=== PATIENT | female | born 1960 | race Caucasian/White ===

== ENCOUNTER 2021-04-09 13:45 | Outpatient (CLI) | payer OTHER, SELFPAY ==
--- NOTE | 2021-04-09 13:53 | MM_ITS ---
WS: [id number] BILATERAL SCREENING DIGITAL MAMMOGRAM WITH CAD HISTORY: SCREENING COMPARISON: 09/05/2018, 03/07/2018, 02/17/2018 and 11/04/2016 Bilateral CC and MLO views submitted. Computer aided detection analyzed. Breast composition: The breasts are heterogeneously dense, which may obscure small masses. No suspici ous masses, microcalcifications or architectural distortion. Mild lobulated asymmetries noted in the upper-outer quadrant of the RIGHT breast have been present on prior examinations. MM/[place] [id number] IMPRESSION: BI-RADS: 2-Benign FOLLOW UP: 1 Year Follow-up
== END 2021-04-09 13:46 | disposition home or self-care (01) ==
LOC: RADSHAW 13:51
PROVIDERS: PCP Family Medicine; Visit Provider Family Medicine
DX: Z12.31 Encounter for screening mammogram for malignant neoplasm of breast (principal)
CPT/HCPCS: 77067

== ENCOUNTER → 2021-05-23 13:30 | Outpatient (BNVA) | payer OTHER, SELFPAY | PROVIDERS: PCP Family Medicine; Visit Provider Nurse Practitioner Women's Health | DX: Z01.419 Encounter for gynecological examination (general) (routine) without abnormal findings (principal); N76.2 Acute vulvitis | CPT/HCPCS: 87624 ==

== ENCOUNTER 2022-07-30 10:19 | Outpatient (CLI) | payer OTHER, SELFPAY ==
--- NOTE | 2022-07-30 10:32 | MM_ITS ---
WS: [id number] BILATERAL SCREENING DIGITAL TOMOSYNTHESIS MAMMOGRAM WITH CAD HISTORY: Z12.31 - Encounter for screening mammogram for malignancy.... COMPARISON: 04/09/2021, 11/04/2016 Bilateral CC and MLO views with tomosynthesis and synthetic mammography submitted. Computer aided det ection analyzed. Breast composition: The breasts are heterogeneously dense, which may obscure small masses. No suspici ous masses, microcalcifications or architectural distortion. Long-term stability 8 mm mass upper oute r quadrant RIGHT breast. MM/[place] [id number] IMPRESSION: BI-RADS: 2-Benign FOLLOW UP: 1 Year Follow-up
== END 2022-07-30 10:20 | disposition home or self-care (01) ==
LOC: RAD 10:22
PROVIDERS: PCP Family Medicine; Visit Provider Nurse Practitioner Women's Health
DX: Z12.31 Encounter for screening mammogram for malignant neoplasm of breast (principal)
CPT/HCPCS: 77063; 77067

== ENCOUNTER 2022-07-31 13:35 | Outpatient (CLI) | payer OTHER, SELFPAY ==
--- NOTE | 2022-07-31 14:00 | XR_ITS ---
WS: [id number] SCREENING DEXA SCAN [employer] CLINICAL INFORMATION: Z78.0 - Asymptomatic menopausal state COMPARISON: 2013 FINDINGS: The L1-L4 bone mineral density measures 1.044 g/cm2. This corresponds to a T score score of -1.1 and Z score of -0.6. Left femoral neck bone mineral density measures 0.997 g/cm2. This corresponds to a T score of -0.1 an d Z score of 0.4. Right femoral neck bone mineral density measures 0.973 g/cm2. This corresponds to a T score -0.3of an d Z score of 0.2. Mean femoral neck bone mineral density measures 0.985 g/cm2. This corresponds to a T score of -0.2 an d Z score of 0.3. XR/XR DEXA axial skeleton* [id number] IMPRESSION: Osteopenia lumbar spine. Normal bone mineralization femoral necks. Patient's FRAX calculated 10 year probability for major osteoporotic fracture i s 12.5 % and osteoporotic hip fracture is 1.0%. Bone mineral density in the lumbar spine has decreased -2.8% since 2014. Bone mineral density in the femoral necks increased 7.7% since 2014.
== END 2022-07-31 13:36 | disposition home or self-care (01) ==
LOC: RAD 13:38
PROVIDERS: PCP Family Medicine; Visit Provider Nurse Practitioner Women's Health
DX: Z13.820 Encounter for screening for osteoporosis (principal); Z78.0 Asymptomatic menopausal state; M85.89 Other specified disorders of bone density and structure, multiple sites
CPT/HCPCS: 77080

== ENCOUNTER → 2022-08-06 11:51 | Outpatient (BNVA) | payer OTHER, SELFPAY | PROVIDERS: PCP Family Medicine; Visit Provider Nurse Practitioner Women's Health | DX: N95.0 Postmenopausal bleeding (principal) | CPT/HCPCS: 76830 ==

== ENCOUNTER → 2022-08-10 14:27 | Outpatient (BNVA) | payer OTHER, SELFPAY | PROVIDERS: PCP Internal Medicine; Visit Provider Nurse Practitioner Women's Health | DX: N95.0 Postmenopausal bleeding (principal); M85.80 Other specified disorders of bone density and structure, unspecified site | CPT/HCPCS: 82306 ==

== ENCOUNTER 2022-09-23 06:57 | Day surgery (SDC) | payer OTHER, SELFPAY ==
[2022-09-21 11:16] VITALS: BMI 35.9
[2022-09-21 11:24] LABS: Add Urine Microscopic? NO; Charge for UA Resulting for Rev
[2022-09-21 11:37] LABS: Basophils % 0.3 %; Eosinophils # 0.1 10^3/uL (0.0-0.8); Hematocrit 46.2 % (37.0-47.0); Hemoglobin 14.7 g/dL (11.5-15.3); Lymphocytes # 1.8 10^3/uL (0.8-4.8); Lymphocytes % 27.4 %; Mean Corpuscular HGB Conc 31.8 g/dL (30.0-36.0); Mean Corpuscular Hemoglobin 29.1 pg (28.0-34.0); Mean Corpuscular Volume 91.5 fl (81-99); Mean Platelet Volume 10.6 fL (7.4-10.4); Monocytes # 0.5 10^3/uL (0.2-0.9); Monocytes % 7.4 %; Neutrophils # 4.07 10^3/uL (1.8-7.7); Neutrophils % 62.6 %; Nucleated Red Blood Cells % 0 %; Platelet Count 267 10^3/cmm (130-400); Red Blood Count 5.05 10^6/uL (4.1-5.3); Red Cell Distribution Width 13.3 % (12.1-15.1); White Blood Count 6.5 10^3/uL (4.0-10.0)
[2022-09-21 11:39] LABS: Urine Appearance Clear (CLEAR); Urine Color Straw (Yellow); pH Urine 7 (5-7)
[2022-09-21 11:40] LABS: Bilirubin Urine Neg (Negative); Blood Urine Neg (Negative); Glucose Urine UA Norm (Normal); Ketones Urine Negative (Negative); Leukocyte Esterase Urine Negative (Negative); Nitrate Urine Negative (Negative); Protein Urine Neg (Negative); Specific Gravity, Urine 1.005 (1.005-1.030); Urobilinogen Urine Norm (Negative)
[2022-09-21 11:56] LABS: Alanine Aminotransferase 17 U/L (0-33); Albumin Level 4.2 g/dL (3.5-5.2); Alkaline Phosphatase 97 U/L (35-105); Aspartate Amino Transferase 16 U/L (0-32); Blood Urea Nitrogen 17 mg/dL (8-23); Calcium 9.3 mg/dL (8.5-10.5); Carbon Dioxide 28 mmol/L (22-29); Chloride 101 mmol/L (98-107); Glomerular Filtration Rate 73.2 mL/min (90-130); Glucose 85 mg/dL (65-115); Osmolality Calculated 287 mOsm/kg (285-295); Sodium 138 mmol/L (136-145); Total Bilirubin 0.4 mg/dL (0.15-1.2); Total Protein 7.2 g/dL (6.6-8.7)
--- NOTE | 2022-09-21 15:54 | P.ANESASSM_ITS ---
Pre-Anesthetic Assessment Height/Weight: Height 1.52 m Weight 83.461 kg Operation Date: 09/23/22 09:00 Proposed Procedures p Hysteroscopy, dilation and curettage with Myosure [id number] N95.0(Not Applicable) - Sabas Butt MD s Dilation And Curettage (D&C)(Not Applicable) - Sabas Butt MD Familial anesthetic complications: none Was Beta Ha taken within 24 hours: N/A Was Clonidine taken within 24 hours: N/A Social No alcohol and No tobacco Exam alert, oriented x 3, clear to auscultation bilaterally and regular rate & rhythm Airway Submandibular: within normal limits Cervical ROM: within normal limits Mallampati: Class II Dentition: full CV/HEM Hypertension GI Gastroesophageal Reflux Disease Metabolic Morbid Obesity and Thyroid Disease Anesthetic Plan ASA status: 3 Anesthesia: General Medications/Allergies Home Medications Medication Instructions Recorded Confirmed Last Taken Type levothyroxine 50 mcg capsule 50 mcg PO DAILY 05/23/21 09/21/22 09/20/22 History naproxen 500 mg tablet 500 mg PO BID 05/23/21 09/21/22 09/20/22 History omeprazole 40 mg capsule,delayed 40 mg PO DAILY 05/23/21 09/21/22 09/20/22 History release clobetasol 0.05 % topical ointment 1 applic topical BID PRN vulvitis 07/28/22 09/21/22 09/07/22 Rx #30 grams cholecalciferol (vitamin D3) 1,250 50,000 unit PO .WEEKLY 8 weeks #8 08/11/22 09/21/22 09/15/22 Rx mcg (50,000 unit) capsule caps lisinopril 5 mg tablet 5 mg PO DAILY 09/07/22 09/21/22 09/20/22 History Allergies Allergy/AdvReac Type Severity Reaction Status Date / Time No Known Allergies Allergy Verified 09/21/22 11:13 PFSH Anesthesia Medical History Arthritis Chronic GERD Hypertension Hypothyroid No pertinent past medical history neghx: dm,dvt/pe PCP: Dr. Wilder Surgical History Hx of carpal tunnel repair both hands 2001 Hx of cholecystectomy (~2003) Hx of hemorrhoidectomy Hx of tubal ligation (~1990) Family History Grandmother Stroke Maternal Denies family history of Colon cancer Ovarian cancer Diabetes Heart disease Breast cancer Hypertension Uterine cancer Thyroid disease Data Anesthesia 09/21/22 11:23 09/21/22 11:23 Short CBC 09/21/22 Range/Units 11:23 WBC 6.5 (4.0-10.0) 10^3/uL Hgb 14.7 (11.5-15.3) g/dL Hct 46.2 (37.0-47.0) % MCV 91.5 (81-99) fl Plt Count 267 (130-400) 10^3/cmm Neut % (Auto) 62.6 % Neut # (Auto) 4.07 (1.8-7.7) 10^3/uL BMP 09/21/22 11:23 Sodium 138 Potassium 4.0 Chloride 101 Carbon Dioxide 28 BUN 17 Creatinine 0.8 Glucose 85 Calcium 9.3 Liver Function 09/21/22 Range/Units 11:23 Total Bilirubin 0.4 (0.15-1.2) mg/dL AST 16 (0-32) U/L ALT 17 (0-33) U/L Alkaline Phosphatase 97 (35-105) U/L Albumin 4.2 (3.5-5.2) g/dL Urine 09/21/22 Range/Units 11:12 Urine Color Straw (Yellow) Urine Appearance Clear (CLEAR) Urine pH 7 (5-7) Ur Specific [place] 1.005 (1.005-1.030) Urine Protein Neg (Negative) Urine Glucose (UA) Norm (Normal) Urine Ketones Negative (Negative) Urine Nitrate Negative (Negative) Urine Bilirubin Neg (Negative) Ur Leukocyte Esterase Negative (Negative) Blood Bank 09/21/22 11:23 Blood Type B Positive Rho(D) Type Positive Antibody Screen Negative Cardiac Studies: No Data to Display
[2022-09-23] VITALS (10 sets, daily range): BP systolic 104–139; BP diastolic 52–93; PULSE 71–85; RESP 14–19; TEMP 36.1–36.6; O2SAT 93–100
[2022-09-23] MEDS: scopolamine 1.5 Patch 1 PATCH TRANSDERMA (07:34)
[2022-09-23] MEDS: sodium chloride 0.9% 1,000 ML 30 ML IV (07:35)
--- NOTE | 2022-09-23 08:35 | P.ANESUD_ITS ---
Pre-Anesthetic Update Pre-Anesthetic Assessment: Date of Surgery/Procedure: 09/23/22 Preop Dianne gnosis: Postmenopausal bleeding Proposed Procedure: Operation Date: 09/23/22 08:50 Proposed Procedures p Hysteroscopy, dilation and curettage with Myosure [id number] N95.0(Not Applicable) - Sabas Butt MD s Dilation And Curettage (D&C)(Not Applicable) - Sabas Butt MD Any changes to Pre-Anesthetic Assessment?: No Last Intake: Intake Last Liquid Date 09/22/22 Last Liquid Time 20:00 Last Solid Date 09/22/22 Last Solid Time 18:00 Labs Last 48hrs: Short CBC 09/21/22 Range/Units 11:23 WBC 6.5 (4.0-10.0) 10^3/ uL Hgb 14.7 (11.5-15.3) g/dL Hct 46.2 (37.0-47.0) % MCV 91.5 (81-99) fl Plt Count 267 (130-400) 10^3/c mm Neut % (Auto) 62.6 % Neut # (Auto) 4.07 (1.8-7.7) 10^3/u L BMP 09/21/22 11:23 Sodium 138 Potassium 4.0 Chloride 101 Carbon Dioxide 28 BUN 17 Creatinine 0.8 Glucose 85 Calcium 9.3 Liver Function 09/21/22 Range/Units 11:23 Total Bilirubin 0.4 (0.15-1.2) mg/dL AST 16 (0-32) U/L ALT 17 (0-33) U/L Alkaline Phosphata se 97 (35-105) U/L Albumin 4.2 (3.5-5.2) g/dL Urine 09/21/22 Range/Units 11:12 Urine Color Straw (Yellow) Urine Appearance Clear (CLEAR) Urine pH 7 (5-7) Ur Specific [place]it y 1.005 (1.005-1.030) Urine Protein Neg (Negative) Urine Glucose (UA) Norm (Normal) Urine Ketones Negative (Negative) Urine Nitrate Negative (Negative) Urine Bilirubin Neg (Negative) Ur Leukocyte Kimberli ase Negative (Negative) Blood Bank 09/21/22 11:23 Blood Type B Positive Rho(D) Type Positive Antibody Screen Negative Vitals: Temperature 97.8 F 09/23/22 07:24 Temperature Source Temporal Artery S can 09/23/22 07:24 Pulse Rate 74 09/23/22 07:24 Pulse Rhythm Regular 09/23/22 07:24 Pulse Strength 3+ Normal 09/23/22 07:24 Respiratory Rate 18 09/23/22 07:24 Blood Pressure 139/86 09/23/22 07:24 Blood Pressure [place] n 103 09/23/22 07:24 Pulse Oximetry 99 09/23/22 07:24 Oxygen Delivery Me thod Room Air 09/23/22 07:24 Exam: Pre-Anes Outpt Exam: alert, oriented x 3, clear to auscultation bilaterally and regular rate & rhythm Cardiac Studies: No Data to Display
--- NOTE | 2022-09-23 08:43 | W.PM.OPSUD ---
Surgery/Procedure H&P Update DATE OF PROCEDURE: September 23, 2022 DATE H&P PERFORMED: 09/21/22 H&P UPDATE INFORMATION: I have reviewed H&P completed within last 30 days, I have examined patient prior to procedure and No changes to prior documentation PREOP DIAGNOSIS: Postmenopausal bleeding PLANNED PROCEDURE: Operation Date: 09/23/22 08:50 Proposed Procedures p Hysteroscopy, dilation and curettage with Myosure [id number] N95.0(Not Applicable) - Sabas Butt MD s Dilation And Curettage (D&C)(Not Applicable) - Sabas Butt MD
[2022-09-23] MEDS: ceFAZolin 2,000 MG in sodium chloride 0.9% (plus) 50 ML 100 MG IV (09:03)
[2022-09-23] MEDS: lidocaine-epi 2% 20 mL INJ 12 ML INJECTION (09:36)
--- NOTE | 2022-09-23 09:39 | PM.OP ---
Operative Report Date of procedure: September 23, 2022 Pre-op diagnosis: Preop Diagnosis Postmenopausal bleeding Post-op diagnosis: Same as above Procedure done: Hysteroscopy with MyoSure. Hysteroscopic polypectomy Specimens removed/disposition: Endometrial polyp Surgeon: Sabas Butt MD Estimated blood loss (mL): 5 IV fluids (mL): 1,000 Complications: None Procedure: After informed consent, the risks included but were not limited to bleeding, infection, injury to internal organs. The patient was counseled on a possible laparotomy and on the potential need for hysterectomy. The patient expressed understanding of the risks involved, all questions were answered, and the patient consented to the procedure. The patient was taken to the operating room where general anesthesia was administered. She was placed in the dorsal lithotomy position and prepped and draped in sterile fashion. A time out procedure was performed. The patient was examined under anesthesia and found to have a normal uterus with normal adnexa. A sterile weight speculum was placed in the vagina. The uterus was then gently sounded to 7 cm, and the cervix was dilated. The 0 degrees MyoSure hysteroscope was advanced gently to the uterine fundus while visualizing the monitor. Survey of the uterine cavity showed: Endometrial polyp from right lateral anterior wall, the fundus shows atrophic in the mid; left ostium was visualized, and lateral wall with atrophic in the mid; right ostium visualized, and lateral wall with atrophic in the mid; anterior and posterior leyva are with atrophic endometrium; endocervical canal is normal. The MyoSure device was advanced and the direct visualization the polyp was morcellated without complication. At the end of morcellation the fluid deficit was 300 mL and was estimated at approximately 200 mL were on the floor. There was minimal bleeding noted and the tenaculum removed with goad hemostasis noted. The patient tolerated the procedure well. The patient was taken to the recovery area in stable condition.
--- NOTE | 2022-09-23 15:30 | ANE.PACU2 ---
Inpatient post-anesthesia follow up: Airway intact: Yes Vital signs: Temperature 97.7 F Pulse Rate 72 Respiratory Rate 17 Blood Pressure 113/90 Pulse Oximetry 99 Oxygen Delivery Me thod Room Air Oxygen Flow Rate 8 Fraction of Inspir ed Oxygen Hydration adequate: Yes Nausea and vomiting: No Pain level: 2 Mental status: Baseline
== END 2022-09-23 11:09 | disposition home or self-care (01) ==
PROVIDERS: PCP Internal Medicine; Visit Provider Obstetrics & Gynecology
PROC: 0UDB8ZZ Extraction of Endometrium, Via Natural or Artificial Opening Endoscopic (ICD-10-PCS; CPT 58558; principal; 2022-09-23 08:40)
PROC: (CPT 58120; 2022-09-23 08:40)
DX: N95.0 Postmenopausal bleeding (principal); I10 Essential (primary) hypertension; K21.9 Gastro-esophageal reflux disease without esophagitis; E66.01 Morbid (severe) obesity due to excess calories; Z68.35 Body mass index [BMI] 35.0-35.9, adult; E03.9 Hypothyroidism, unspecified
CPT/HCPCS: 58558; 80053; 81003; 85025; 86850; 86900; 88305; J0690; J1100; J1200; J2405; J2704; J3010; J7030

== ENCOUNTER → 2022-11-05 15:27 | Outpatient (BNVA) | payer OTHER, SELFPAY | PROVIDERS: PCP Internal Medicine; Visit Provider Podiatrist Foot & Ankle Surgery | DX: M72.2 Plantar fascial fibromatosis (principal); M24.571 Contracture, right ankle | CPT/HCPCS: 73630 ==

== ENCOUNTER 2023-02-02 06:00 | Outpatient (RCR) | payer OTHER, SELFPAY | END 2023-02-13 23:59 | disposition home or self-care (01) | LOC: TPT 06:00 | PROVIDERS: Visit Provider Podiatrist Foot & Ankle Surgery | DX: M21.40 Flat foot [pes planus] (acquired), unspecified foot (principal) | CPT/HCPCS: 97035; 97110; 97140; 97162 ==

== ENCOUNTER 2023-02-14 06:00 | Outpatient (RCR) | payer OTHER, SELFPAY | END 2023-03-16 23:59 | disposition home or self-care (01) | LOC: TPT 06:00 | PROVIDERS: PCP Internal Medicine; Visit Provider Podiatrist Foot & Ankle Surgery | DX: M72.2 Plantar fascial fibromatosis (principal) | CPT/HCPCS: 97035; 97110; 97140 ==

== ENCOUNTER 2023-03-17 06:00 | Outpatient (RCR) | payer OTHER, SELFPAY | END 2023-04-15 23:59 | disposition home or self-care (01) | LOC: TPT 06:00 | PROVIDERS: PCP Internal Medicine; Visit Provider Podiatrist Foot & Ankle Surgery | DX: M72.2 Plantar fascial fibromatosis (principal); M21.40 Flat foot [pes planus] (acquired), unspecified foot | CPT/HCPCS: 20560; 97110; 97140 ==

== ENCOUNTER 2023-04-16 06:00 | Outpatient (RCR) | payer OTHER, SELFPAY | END 2023-04-27 23:59 | disposition home or self-care (01) | LOC: TPT 06:00 | PROVIDERS: PCP Internal Medicine; Visit Provider Podiatrist Foot & Ankle Surgery | DX: M72.2 Plantar fascial fibromatosis (principal) | CPT/HCPCS: 20560; 97110; 97140 ==

== ENCOUNTER 2023-05-12 05:33 | Day surgery (SDC) | payer OTHER, SELFPAY ==
[2023-05-12] VITALS (10 sets, daily range): BP systolic 102–117; BP diastolic 65–81; PULSE 65–87; RESP 12–16; TEMP 36.1; O2SAT 93–98
[2023-05-12] MEDS: sodium chloride 0.9% 1,000 ML 30 ML IV (06:05)
[2023-05-12] MEDS: gabapentin 300 mg Capsule PO (06:11)
[2023-05-12] MEDS: acetaminophen 1,000 MG/100 ML PIGGYBACK 400 MG IV (06:17)
--- NOTE | 2023-05-12 06:50 | W.PM.OPSUD ---
Surgery/Procedure H&P Update DATE OF PROCEDURE: May 12, 2023 DATE H&P PERFORMED: 04/26/23 H&P UPDATE INFORMATION: I have reviewed H&P completed within last 30 days, I have examined patient prior to procedure, No changes to prior documentation and H&P is in [facility] EMR on date indicated PREOP DIAGNOSIS: Right foot plantar fasciitis PLANNED PROCEDURE: Operation Date: 05/12/23 07:00 Proposed Procedures p Right open gastroc recession and Injection plantar fascia origin right foot [id number],M21.961,M72.2(Right) - Sage Vale DPM s Injection plantar fascia origin right foot(Right) - Sage Vale DPM
[2023-05-12] MEDS: ceFAZolin 2,000 MG in sodium chloride 0.9% (plus) 50 ML 100 MG IV (06:59)
--- NOTE | 2023-05-12 07:01 | ANES.PREANE2 ---
Pre-Anesthetic Assessment Height/Weight: Height 1.52 m Weight 79.379 kg Temp Pulse Resp BP Pulse Ox O2 Del Method 97 F L 77 16 113/81 97 Room Air 05/12/23 06:01 05/12/23 06:01 05/12/23 06:01 05/12/23 06:01 05/12/23 06:01 05/12/23 06:01 Preop Diagnosis: Right foot plantar fasciitis Operation Date: 05/12/23 07:00 Proposed Procedures p Right open gastroc recession and Injection plantar fascia origin right foot [id number],M21.961,M72.2(Right) - Sage Vale DPM s Injection plantar fascia origin right foot(Right) - Sage Vale DPM Familial anesthetic complications: None Was Beta Ha taken within 24 hours: N/A Was Clonidine taken within 24 hours: N/A Last intake: Intake Last Liquid Date 05/11/23 Last Liquid Time 20:00 Last Solid Date 05/11/23 Last Solid Time 18:00 Social No alcohol and No tobacco Exam alert, oriented x 3, clear to auscultation bilaterally and regular rate & rhythm Airway Mallampati: Class II Dentition: chipped CV/HEM Hypertension GI Gastroesophageal Reflux Disease Metabolic Thyroid Disease Anesthetic Plan ASA status: 2 Anesthesia: General Risk of > 500 ml blood loss (7ml/kg in children): No Medications/Allergies Home Medications Medication Instructions Recorded Confirmed Last Taken Type levothyroxine 50 mcg capsule 50 mcg PO DAILY 05/23/21 05/12/23 05/12/23 History naproxen 500 mg tablet 500 mg PO BID 05/23/21 05/11/23 05/11/23 History clobetasol 0.05 % topical ointment 1 applic topical BID PRN vulvitis 07/28/22 05/11/23 09/07/22 Rx #30 grams lisinopril 5 mg tablet 5 mg PO DAILY 09/07/22 05/12/23 05/11/23 History acetaminophen 325 mg capsule 325 mg PO Q4H PRN fever or pain 09/23/22 05/11/23 Unknown Rx #60 caps ibuprofen 800 mg tablet 800 mg PO TID PRN pain #60 tabs 09/23/22 05/11/23 Unknown Rx night splint #1 ea 11/05/22 04/26/23 Unknown Rx cholecalciferol (vitamin D3) 1,250 50,000 unit PO .WEEKLY 12 weeks #8 11/06/22 05/11/23 05/10/23 Rx mcg (50,000 unit) capsule caps omeprazole 40 mg capsule,delayed 40 mg PO DAILY 05/11/23 05/12/23 05/12/23 History release doxycycline hyclate 100 mg capsule 100 mg PO DAILY 05/12/23 05/12/23 05/12/23 History hydrocodone 5 mg-acetaminophen 325 1 tab PO Q6H PRN pain #16 tabs 05/12/23 Unknown Rx mg tablet Allergies Allergy/AdvReac Type Severity Reaction Status Date / Time No Known Allergies Allergy Verified 05/11/23 10:45 Current Medications Generic Name Dose Route Start Last Admin Trade Name Freq PRN Reason Stop Dose Admin Sodium Chloride 1,000 mls @ 30 mls/hr 05/12/23 05:45 05/12/23 06:05 Sodium Chloride 0.9% IV 05/13/23 05:44 30 mls/hr .Q24H SHANAE Administration PFSH Anesthesia Medical History Arthritis Chronic GERD No pertinent past medical history neghx: dm,dvt/pe PCP: Dr. Wilder Hypertension Hypothyroid Surgical History Hx of tubal ligation (~1990) Hx of carpal tunnel repair both hands 2001 Hx of hemorrhoidectomy Hx of cholecystectomy (~2003) Family History Grandmother Stroke Maternal Denies family history of Colon cancer Ovarian cancer Diabetes Heart disease Breast cancer Hypertension Uterine cancer Thyroid disease Data Anesthesia Cardiac Studies: No Data to Display
[2023-05-12] MEDS: BUPivacaine 0.5% INJ 30 mL INJECTION (07:31)
--- NOTE | 2023-05-12 07:54 | W.PM.BPON ---
Date of procedure: 05/12/2023 Surgeon name: Isabella YatesPValerio Staff Respiratory Therapist(s) name(s): Kassidy Procedure(s) performed: Right leg gastrocnemius recession open, right foot plantar fascia injection Description of findings: Equinus contracture right ankle Estimated blood loss: 5 cc Tourniquet time: 37 minutes Specimen(s) removed: None Post-operative diagnosis: Plantar fasciitis right, equinus contracture right
--- NOTE | 2023-05-12 07:55 | P.OP_ITS ---
Operative Report Date of procedure: May 12, 2023 Pre-op diagnosis: Equinus right ankle, plantar fasciitis right foot Post-op diagnosis: Same Post-op findings: Equinus contracture right ankle Procedure done: 1. Open gastroc recession right leg CPT 46130 2. Injection plantar fascia origin right foot CPT 51029 Implants: None Surgeon: Sage Vale DPM Estimated blood loss: 5 cc 37 minutes Complications: None Findings: See above Procedure: Patient is a 62-year-old female that has a history of right ankle equinus with concomitant plantar fasciitis. The patient has had the aforementioned chief complaint for some time. Conservative treatment measures have been attempted and the patient has opted for surgical intervention at this time. A lengthy discussion regarding the procedure, including risks and complications has been had with the patient and is noted in the recent clinic note. Written and verbal consent have been obtained. All patient questions have been answered to the patient?s satisfaction. No written or verbal guarantees have been given or implied. The patient has been NPO since midnight. The history has been reviewed and the history and physical is current. The signed consent was confirmed and placed in the patient chart. Patient imaging has been reviewed and is consistent with the diagnosis. Under mild sedation, the patient was brought into the operating room and left on the gurney in the supine position. IV antibiotics were given by the anesthesia team as preoperative surgical prophylaxis. General sedation was then performed by the anesthesiateam. A pneumatic tourniquet was then placed about the right thigh. The operative extremity was then prepped and draped in the usual fashion. The extremity was then elevated and exsanguinated before the tourniquet was inflated to 325 mmHg. After inflation, the following procedure was then performed. Attention was directed to the right leg where a 5 cm incision was made to the medial aspect of the gastroc. Dissection was carried down through subcutaneous the superficial fascia to the level of the crural fascia. #15 blade was used to incise the crural fascia. Dissection was carried out in between the interval of the soleus and gastrocnemius muscles. A retractor was inserted into this intermuscular interval. The fascia of the gastrocnemius was visualized. A 15 blade was used to transect this intramuscular aponeurosis. There was noted to be an increase in dorsiflexion of the ankle joint. The site was then irrigated with copious amounts of sterile saline before attention was directed to closure. Deep tissue was closed with 2-0 Vicryl followed by subcuticular closure using 3-0 Vicryl and skin closure with 3-0 nylon in horizontal mattress fashion. Attention was then directed to the plantar aspect of the right foot where an 18- gauge needle was used to dry needled the origin of the plantar fascia percutaneously. Next, a 10 cc mixture of 0.5% Marcaine plain and platelet rich plasma from patient was injected in and around the origin of the plantar fascia on the medial tubercle. 0.5% Marcaine plain was then used to anesthetize the site of the gastrocnemius recession. Incision sites were dressed with Xeroform, 4 x 4 gauze, Kerlix, Shahab. Patient was placed in a cam boot. The patient tolerated the procedure and anesthesia well and without complication. The patient was transported from the operating room to the recovery room with vital signs stable and vascular status intact to all digits of the right foot. The patient was given both written and verbal instructions to remain weightbearing as tolerated to the operative extremity, to keep dressings/splint clean, dry and intact and to take pain medication as directed. The patient will follow-up in the outpatient setting at their scheduled appointment. The patient was discharged with my personal number and was instructed to call if any questions or issues should arise. They were discharged home once anesthesia criteria was met.
[2023-05-12] MEDS: HYDROcodone-acetaminophen 5-325 mg Tablet 1 TAB PO (09:00)
--- NOTE | 2023-05-12 09:15 | ANE.PACU2 ---
Inpatient post-anesthesia follow up: Airway intact: Yes Vital signs: Temperature 97 F Pulse Rate 71 Respiratory Rate 16 Blood Pressure 102/70 Pulse Oximetry 98 Oxygen Delivery Me thod Room Air Oxygen Flow Rate 5 Fraction of Inspir ed Oxygen Hydration adequate: Yes Nausea and vomiting: No Pain level: 1 Mental status: Baseline
== END 2023-05-12 09:15 | disposition home or self-care (01) ==
PROVIDERS: PCP Internal Medicine; Visit Provider Podiatrist Foot & Ankle Surgery
PROC: (CPT 27687; principal; 2023-05-12 07:00)
PROC: (CPT 96372; 2023-05-12 07:00)
DX: M72.2 Plantar fascial fibromatosis (principal); M24.571 Contracture, right ankle; I10 Essential (primary) hypertension; K21.9 Gastro-esophageal reflux disease without esophagitis; E03.9 Hypothyroidism, unspecified
CPT/HCPCS: 20551; 27687; J0131; J0690; J1100; J2250; J2405; J2704; J3010; J3490; J7030

== ENCOUNTER 2025-05-11 08:05 | Outpatient (CLI) | payer OTHER, SELFPAY ==
--- NOTE | 2025-05-11 | MM_ITS ---
WS: [id number] BILATERAL SCREENING DIGITAL TOMOSYNTHESIS MAMMOGRAM WITH CAD HISTORY: ANNUAL SCREENING COMPARISON: 07/30/2022, 04/09/2021 Bilateral CC and MLO views with tomosynthesis and synthetic mammography submitted. Computer aided detection analyzed. Breast composition: The breasts are heterogeneously dense, which may obscure small masses. No suspicious masses, microcalcifications or architectural distortion. Long-term stability 8 mm mass in the upper outer quadrant RIGHT breast. Benign axillary lymph nodes. MM/MM scr tomosynthesis [id number] IMPRESSION: BI-RADS: 2 - Benign FOLLOW UP: 1 Year Follow-up
== END 2025-05-11 08:06 | disposition home or self-care (01) ==
PROVIDERS: PCP Internal Medicine; Visit Provider Internal Medicine
DX: Z12.31 Encounter for screening mammogram for malignant neoplasm of breast (principal); R92.333 Mammographic heterogeneous density, bilateral breasts; N63.11 Unspecified lump in the right breast, upper outer quadrant; D36.0 Benign neoplasm of lymph nodes
CPT/HCPCS: 77063; 77067